=== PATIENT | female | born 1980 | race Caucasian/White ===

== ENCOUNTER 2021-04-25 11:54 | Emergency (ER) | payer OTHER ==
[~2021-04-25] VITALS: Ht 170.2 cm; Wt 59.9 kg
[2021-04-25] MEDS ORDERED: METHOCARBAMOL500 MG PO (12:20)
[2021-04-25] MEDS ORDERED: ZENATANE30 MG PO (12:20)
== END 2021-04-25 15:50 | disposition home or self-care (01) ==
LOC: ED 11:54
DX: R10.32 Left lower quadrant pain (principal); R19.4 Change in bowel habit; Z79.899 Other long term (current) drug therapy
CPT/HCPCS: 74177; 80053; 85025; 99284-25; Q9967